=== PATIENT | female | born 1975 | race Caucasian/White ===

== ENCOUNTER 2018-03-17 22:56 | Emergency (ER) ==
[2018-03-17 23:14] VITALS: BP 127/83; TEMP 97.8; BMI 36.1
[2018-03-18] MEDS ORDERED: ASPIRIN CHEWABLE PO STA (00:26)
--- NOTE | 2018-03-18 00:29 | ED.PDOC ---
General ED Provider: Dr. LEIGH COCHRAN Chief Complaint: Chest Pain Stated Complaint: Patient is a 43 year old female who comes to the ER with complains of Pressure in mid chest that started one day ago and went away. The pain recurred today at 10 pm. She describes it as a heaviness in the middle of her chest. Also complains of a migraine headache. Time Seen by Physician: 23:10 Mode of Arrival: Wheelchair Information Source: Patient Primary Care Provider: YARIEL SEGURA-[facility] Nursing and Triage Documentation Reviewed and Agree: Yes Does patient meet sepsis criteria?: No System Inflammatory Response Syndrome: Not Applicable Sepsis Protocol: For patient's 13 years and over: Temp is 96.8 and below OR 101 and greater Pulse >90 BPM Resp >20/minute Acutely Altered Mental Status Are patient's symptoms suggestive of a new infection, such as: -Pneumonia -Skin, Soft Tissue -Endocarditis -UTI -Bone, Joint Infection -Implantable Device -Acute Abdominal Infection -Wound Infection -Meningitis -Blood Stream Catheter Infection -Unknown Review of Systems - Review Of Systems Constitutional: Reports: No symptoms Eyes: Reports: No symptoms Ears, Nose, Mouth, Throat: Reports: No symptoms Respiratory: Reports: No symptoms Cardiac: Reports: Chest pain GI: Reports: No symptoms : Reports: No symptoms Neurological: Reports: Anxiety, Headache All Other Systems: Reviewed and Negative Past Medical History - Past Medical History Previously Healthy: No Endocrine: Reports: None Cardiovascular: Reports: None Respiratory: Reports: None Hematological: Reports: None Gastrointestinal: Reports: None Genitourinary: Reports: None Neuro/Psych: Reports: Migraine Musculoskeletal: Reports: None Cancer: Reports: None Last Menstrual Period: years - has IUD - Surgical History General Surgical History: Reports: Gastric Sleeve - Family History Family History: Reports: None - Social History Smoking Status: Never smoker Hx Substance Use: No Alcohol Screening: Occasionally - Immunizations Tetanus Shot up to Date: No (unsure) Physical Exam - Physical Exam Appearance: Ill-appearing, Obese Pain Distress: Moderate Neck: Supple Respiratory: Airway patent, Breath sounds clear, Breath sounds equal, Respirations nonlabored Cardiovascular: RRR, Pulses normal, No rub, No murmur GI/: Soft, Nontender, No masses, Bowel sounds normal, No Organomegaly Musculoskeletal: Normal strength, ROM intact, No edema, No calf tenderness Skin: Warm, Dry, Normal color Neurological: Sensation intact, Motor intact, Reflexes intact, Cranial nerves intact, Alert, Oriented Psychiatric: Anxious Interpretation - Radiology Interpretation Radiology Interpretation By: ED Physician Radiology Results: Negative Exam Interpreted: Portable 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 Rhythm: Sinus Ectopy: None - EKG Interpretation Time of EKG #1: 23:38 Rate: Normal Rhythm: Sinus Ectopy: None [place]: [place] ST Segment: Normal Interpretation: normal sinus, Low volatage EKG Re-Evaluation - Re-Evaluation Time of Re-Evaluation: 02:40 Status: Improved Vital Signs Stable: Yes Pain Level: 0 Appearance: NAD Critical Care Note - Critical Care Note Total Time (mins): 0 Course - Course Hematology/Chemistry: 03/17/18 11:24 03/17/18 11:24 Orders, Labs, Meds: Lab Review 03/17/18 03/17/18 03/18/18 11:24 11:24 02:20 WBC 7.74 RBC 4.41 Hgb 13.0 Hct 38.1 MCV 86.4 MCH 29.5 MCHC 34.1 RDW Coeff of Nigel 12.5 Plt Count 246 Immature Gran % (Auto) 0.3 Neut % (Auto) 56.9 Lymph % (Auto) 32.8 Taliaferro % (Auto) 7.9 Eos % (Auto) 1.7 Baso % (Auto) 0.4 Immature Gran # (Auto) 0.0 Neut # (Auto) 4.4 Lymph # (Auto) 2.5 Taliaferro # (Auto) 0.6 Eos # (Auto) 0.1 Baso # (Auto) 0.0 Sodium 137 Potassium 4.3 Chloride 104 Carbon Dioxide 26 Anion Gap 11.3 BUN 16 Creatinine 0.79 Estimated GFR (MDRD) 80.00 BUN/Creatinine Ratio 20.25 Glucose 98 Calcium 9.0 Total Bilirubin 0.4 AST 42 H ALT 75 Alkaline Phosphatase 74 Total Creatine Kinase 65 Troponin I 0.0110 < 0.0100 Total Protein 6.6 Albumin 3.5 Globulin 3.1 Albumin/Globulin Ratio 1.13 Orders Category Date Time Status EKG-(ED ONLY) Stat CARDIO 03/17/18 23:21 Completed CBC W/ AUTO DIFF Stat LAB 03/17/18 11:24 Completed COMPREHENSIVE METABOLIC PANEL Stat LAB 03/17/18 11:24 Completed CREATINE KINASE Stat LAB 03/17/18 11:24 Completed TROPONIN I Stat LAB 03/17/18 11:24 Completed TROPONIN I Stat LAB 03/18/18 02:20 Completed Aspirin [Aspirin Chewable] MEDS 03/18/18 00:26 Discontinued 324 mg PO ONCE STA Sumatriptan Succinate [Imitrex] MEDS 03/18/18 01:01 Discontinued 6 mg SUBCUT ONCE STA CHEST, 1V AP ONLY Stat RADS 03/17/18 23:21 Taken Medications Discontinued Medications Generic Name Dose Route Start Last Admin Trade Name Nelida QUEZADA Reason Stop Dose Admin Aspirin 324 mg 03/18/18 00:26 03/18/18 00:31 Aspirin Chewable PO 03/18/18 00:27 324 mg ONCE STA Administration Sumatriptan Succinate 6 mg 03/18/18 01:01 03/18/18 01:08 Imitrex SUBCUT 03/18/18 01:02 6 mg ONCE STA Administration Vital Signs: Temp Pulse Resp BP Pulse Ox 03/17/18 23:00 97.8 F 78 20 127/83 99 CRISTI Risk Score Age >/= 65: No >/= 3 CAD Risk Factors: No Known CAD (Stenosis >/= 50%): No ASA Use in Past 7 Days: No Severe Angina (>/= 2 episodes in 24 hours): No EKG ST Changes >/= 0.5mm: No Postive Cardiac Marker: No CRISTI Total Score: 0 CRISTI Risk Score: Risk Score Odds of by 30D 0 0.1 (0.1-0.2) 1 0.3 (0.2-0.3) 2 0.4 (0.3-0.5) 3 0.7 (0.6-0.9) 4 1.2 (1.0-1.5) 5 2.2 (1.9-2.6) 6 3.0 (2.5-3.6) 7 4.8 (3.8-6.1) Departure - Departure Time of Disposition: 02:40 Disposition: HOME SELF-CARE Discharge Problem: Non-cardiac chest pain Instructions: Migraine Headache (ED), Noncardiac Chest Pain (ED) Condition: Stable Pt referred to PMD for follow-up: Yes IPMP verified?: No Additional Instructions: Follow up with PCP in 3 days Take Tylenol or motrin as needed for pain Allergies/Adverse Reactions: Allergies No Known Drug Allergies Adverse Reaction (Verified 06/23/15 23:38) Home Medications: Ambulatory Orders Acetaminophen [Tylenol] 650 mg PO Q8H PRN 02/01/13 Acyclovir [Zovirax] 200 mg PO Q6HR PRN 02/01/13 Orphenadrine Citrate [Norflex] 100 mg PO BID PRN 02/01/13 Ropinirole HCl [Requip] 2 mg PO BEDTIME 02/01/13 Zolpidem Tartrate [Ambien] 10 mg PO BEDTIME PRN 02/01/13 Topiramate [Topamax] 100 mg PO DAILY 03/17/18 Disposition Discussed With: Patient, Family
[2018-03-18] MEDS ORDERED: IMITREX SUBCUT STA (01:01)
--- NOTE | 2018-03-18 07:45 | DI ---
EXAM: Chest one view, frontal view only. HISTORY: Chest pain. COMPARISON: 11/12/2015. FINDINGS: The heart size is normal. There is no pulmonary vascular congestion. The lungs are clear . No pleural effusion or pneumothorax is seen. No acute osseous abnormality is identified. Since t he prior study, there has been no significant interval change. IMPRESSION: No acute cardiopulmonary process.
== END 2018-03-18 03:00 | disposition home or self-care (01) ==
LOC: ED 22:56
DX: R07.89 Other chest pain (principal); G43.909 Migraine, unspecified, not intractable, without status migrainosus
CPT/HCPCS: 36415; 80053; 82550; 84484; 85025; 93005; 93010; 96372; 99284